=== PATIENT | male | born 1975 | race Caucasian/White ===

== ENCOUNTER 2024-12-30 11:25 | Outpatient (AMB) | payer OTHER, SELFPAY ==
--- NOTE | 2024-12-30 11:33 | A.OFFPC_ITS ---
Vital Signs 12/30/24 11:46 12/30/24 11:57 Height 5 ft 11.06 in Weight 184 lb 2 oz BMI 25.6 BP 148/100 H 148/102 H Blood Pressure Location Rt brachial Rt brachial Position Sitting Sitting Respiration 14 Pulse 110 H Pulse Source Pulse Oximeter Pulse Oximetry (%) 97 Oxygen Delivery Method Room Air Intake Visit Reasons: Ets Care Intake Note: New patient visit. On cephalexi for lymph node swelling. Survey Research Teacher Required: No Allergies bee pollen Allergy (Unknown, Verified 01/02/25 09:51) Unknown morphine Allergy (Unknown, Verified 01/02/25 09:51) hyperactivity naproxen Allergy (Unknown, Verified 01/02/25 09:51) Rash Sulfa (Sulfonamide Antibiotics) Allergy (Unknown, Verified 01/02/25 09:51) Hives tinidazole Allergy (Unknown, Verified 01/02/25 09:51) Hives Tobacco use date assessed: 12/30/24 Dental Screening Dental Screen Date: 12/30/24 Did you have a dental visit in the last 12 months?: Yes Did you have a dental problem in the last 6 months where you did not have access to dental care?: No Was dental information given to patient?: Patient has dentist HPI HPI Comments History of Present Illness Details 49 year old male with a past medical his tory of enteric reactive arthritis, ulcerative colitis s/p total colectomy, arthralgia, cervical & lumbar DDD presenting to reestablish care EC: Follows with colorectal/GI. Stable. Colectomy/J pouch 2012. MSK: -Left carpal tunnel done in August. Got post operative staph infection. Left hand/arm pain following surgery. Then had left axillary lymph nodes swelling went on abx resolved. Then had right axillary lymph nodes back on abx. Right elbow swelling. History of ?gout-left toe swelling-there was a questions of osteomyelitis, cellulitis. EMG done yesterday. Follows up for this in February. -Has had elevated RF. [facility] Insomnia: Stable on zolpidem ROS see HPI PHYSICAL EXAM: GENERAL: Alert and oriented x 3. NAD EYES: EOMI. Anicteric. HENT: Moist mucous membranes. No scleral icterus. No cervical lymphadenopathy. LUNGS: Clear to auscultation bilaterally. CARDIOVASCULAR: Regular rate and rhythm. No murmur. No JVD. ABDOMEN: Soft, non-tender +bs EXTREMITIES: No edema. Non-tender. SKIN: No rashes or lesions. Warm. NEUROLOGIC: No focal neurological deficits. CN II-XII grossly intact PSYCHIATRIC: Cooperative. Appropriate mood and affect [facility] Medical History H/O sigmoidoscopy Surgical History History of hernia surgery History of carpal tunnel surgery Hx of appendectomy H/O colectomy H/O colonoscopy Family History Mother Breast cancer Other FH: mental illness Social History Housing: House Alcohol intake: current Comment: socially Patient Tobacco Use Status: Former Tobacco user Cigarette Packs Per Day: 0.5 Years Smoked: 20 e-Cigarette/Vaping Use: Never Used Second Hand Smoke Exposure: No service: No Current occupational status: employed Current occupation: Sales Current occupational exposures/hazards: No Cognitive needs: No Hearing needs: No Vision needs: No Questionnaire PHQ-9 Over the last 2 weeks, how often have you been bothered by any of the following problems? 1. Little interest or pleasure in doing things: not at all 2. Feeling down, depressed, or hopeless: not at all 3. Trouble falling or staying asleep, or sleeping too much: several days 4. Feeling tired or having little energy: not at all 5. Poor appetite or overeating: not at all 6. Feeling bad about yourself - or that you are a failure or have let yourself or your family down: not at all 7. Trouble concentrating on things, such as reading the newspaper or watching television: not at all 8. Moving or speaking so slowly that other people could have noticed. Or the opposite - being so fidgety or restless that you have been moving around a lot more than usual: not at all 9. Thoughts that you would be better off or of hurting yourself in some way: not at all Total score: 1 Depression Screening Interpretation: Negative Depression Screening Done: Yes 76625 - PHQ-9 Billing: Yes Source: Developed by Drs. Julio Madsen, Peri Pace, Bridger Rueda and colleagues, with an educational quentin from [employer]. Thrive Questionnaire Date Thrive assessed: 12/30/24 I am a: Patient What is your living situation today?: I have a steady place to live Within the past 12 months, did the food you bought not last and you didn't have the money to get more?: Never true Within the past 12 months, did you worry whether your food would run out before you got money to buy more?: Never true Do you have trouble paying for medicines?: No Do you have trouble getting transportation to medical appointments?: No Do you have trouble paying your heating and electricity bill?: No Do you have trouble taking care of your child, family member or friend?: No Do you have trouble with day-to-day activities such as bathing, preparing meals, shopping, managing finances, etc.?: No Are you currently unemployed and looking for a job?: No Are you interested in more education?: No Please select the resources that you would like help with: None Currently or been in a relationship where the following occur: No concerns reported THRIVE Score: 0 AUDIT C Alcohol Use Questionnaire (AUDIT-C) 1. How often do you have a drink containing alcohol?: 2-3 times a week 2. How many drinks containing alcohol do you have on a typical day when you are drinking?: 3 or 4 3. How often do you have six or more drinks on one occasion?: Never Total Score: 4 MEGHAN-7 AMB Questionnaire MEGHAN-7 Date MEGHAN - 7 assessed: 12/30/24 Feeling nervous, anxious, or on edge: 0 = Not at all Not being able to stop or control worryin = Not at all Worrying too much about different things: 0 = Not at all Trouble relaxin = Not at all Being so restless that it is hard to sit still: 0 = Not at all Becoming easily annoyed or irritable: 0 = Not at all Feeling afraid as if something awful might happen: 0 = Not at all Total MEGHAN-7 score (0-4 normal; 5-9 mild; 10-14 moderate; 15-21 severe): 0 Source: Developed by Peri Pena B.W. Sanjeev, Bridger Rueda and colleagues, with an educational quentin from [employer]. MEGHAN-7 Assessment Billing MEGHAN-7 Assessment Tool: MEGHAN-7 Assessment 48780 Physical exam (Primary Care) Vital Signs: Last Vital Signs Pulse 110 H 12/30/24 11:46 Resp 14 12/30/24 11:46 BP 148/102 H 12/30/24 11:57 Pulse Ox 97 12/30/24 11:46 Oxygen Delivery Method Room Air 12/30/24 11:46 BMI result Body Mass Index 25.6 Tobacco/Smoking Status: Tobacco use Status Tobacco use date assessed 12/30/24 12/30/24 11:50 Patient Tobacco Use Status Former Tobacco user 12/30/24 11:50 e-Cigarette/Vaping Use Never Used 12/30/24 11:50 PHQ-9: PHQ-9 Score PHQ-9: Total score 1 01/04/25 10:50 Depression Screening Interpretation: Negative Thrive Assessment: Date of Thrive Assessment Date Thrive assessed 12/30/24 12/30/24 11:55 Currently or been in a relationship where the following occur: No concerns reported Coding Level of Care Code Est Pt Level 5 (18102) Diagnoses Reactive arthritis of multiple sites M02.39 Reactive arthritis location: multiple sites Staph infection B95.8 Iron excess E83.19 Additional Codes MEGHAN-7 Assessment Billing - MEGHAN-7 Assessment Tool: MEGHAN-7 Assessment 09747 ([id number]) PHQ-9 - 62932 - PHQ-9 Billing: Yes ([id number]) Time Spent (min) 50 Assessment & Plan Assessment & Plan (1) Reactive arthritis: Code(s): M02.30 - Lilli's disease, unspecified site Category: Medical Qualifiers: Reactive arthritis location: multiple sites Qualified Code(s): M02.39 - Lilli's disease, multiple sites Plan: Pending rheumatology consult (2) Staph infection: Code(s): B95.8 - Unspecified staphylococcus as the cause of diseases classified elsewhere Category: Medical Plan: If intermittent LN recurs consider infectious disease (3) Iron excess: Code(s): E83.19 - Other disorders of iron metabolism Category: Medical Plan: While on iron. He stopped this. Then donated blood. Will wait 2 months prior to recheck Orders: Orders Rheumatoid Factor 12/31/24 B95.8 - Unspecified staphylococcus as the cause of diseases classified elsewhere, M02.30 - Lilli's disease, unspecified site, M25.40 - Effusion, unspecified joint, M50.30 - Other cervical disc degeneration, unspecified cervical region, R20.0 - Anesthesia of skin Vitamin B12 and Folate 12/31/24 B95.8 - Unspecified staphylococcus as the cause of diseases classified elsewhere, M02.30 - Lilli's disease, unspecified site, M25.40 - Effusion, unspecified joint, M50.30 - Other cervical disc degeneration, unspecified cervical region, R20.0 - Anesthesia of skin Cyclic Citrullinated Peptide 12/31/24 B95.8 - Unspecified staphylococcus as the cause of diseases classified elsewhere, M02.30 - Lilli's disease, unspecified site, M25.40 - Effusion, unspecified joint, M50.30 - Other cervical disc degeneration, unspecified cervical region, R20.0 - Anesthesia of skin Uric Acid 12/31/24 B95.8 - Unspecified staphylococcus as the cause of diseases classified elsewhere, M02.30 - Lilli's disease, unspecified site, M25.40 - Effusion, unspecified joint, M50.30 - Other cervical disc degeneration, unspecified cervical region, R20.0 - Anesthesia of skin Pathologist Review - CBC 12/31/24 B95.8 - Unspecified staphylococcus as the cause of diseases classified elsewhere, M02.30 - Lilli's disease, unspecified site, M25.40 - Effusion, unspecified joint, M50.30 - Other cervical disc degeneration, unspecified cervical region, R20.0 - Anesthesia of skin Complete Blood Count Auto Diff 3 Months E83.19 - Other disorders of iron metabolism Ferritin 3 Months E83.19 - Other disorders of iron metabolism Erythrocyte Sedimentation Rate 12/31/24 B95.8 - Unspecified staphylococcus as the cause of diseases classified elsewhere, M02.30 - Lilli's disease, unspecified site, M25.40 - Effusion, unspecified joint, M50.30 - Other cervical disc degeneration, unspecified cervical region, R20.0 - Anesthesia of skin Complete Blood Count Auto Diff 12/31/24 B95.8 - Unspecified staphylococcus as the cause of diseases classified elsewhere, M02.30 - Lilli's disease, unspecified site, M25.40 - Effusion, unspecified joint, M50.30 - Other cervical disc degeneration, unspecified cervical region, R20.0 - Anesthesia of skin IRON PROFILE 3 Months E83.19 - Other disorders of iron metabolism Referrals Rheumatology Referral E83.19 - Other disorders of iron metabolism Infectious Disease Referral B95.8 - Unspecified staphylococcus as the cause of diseases classified elsewhere, M25.40 - Effusion, unspecified joint, R20.0 - Anesthesia of skin
[2024-12-30 11:46] VITALS: BP 148/100; PULSE 110; RESP 14; O2SAT 97; BMI 25.6
[2024-12-30 11:57] VITALS: BP 148/102
== END 2024-12-30 12:22 | disposition home or self-care (01) ==
PROVIDERS: PCP Internal Medicine; Visit Provider Internal Medicine
DX: M02.39 Reiter's disease, multiple sites (principal); B95.8 Unspecified staphylococcus as the cause of diseases classified elsewhere; E83.19 Other disorders of iron metabolism

== ENCOUNTER → 2024-12-30 11:25 | Outpatient (BNVA) | payer OTHER, SELFPAY | PROVIDERS: PCP Internal Medicine; Visit Provider Internal Medicine | DX: M02.39 Reiter's disease, multiple sites (principal); B95.8 Unspecified staphylococcus as the cause of diseases classified elsewhere; E83.19 Other disorders of iron metabolism | CPT/HCPCS: 96127 ==

== ENCOUNTER 2024-12-31 14:41 | Outpatient (REF) | payer OTHER, SELFPAY ==
[2024-12-31 18:30] LABS: MANUAL DIFF FLAG NO
[2024-12-31 18:55] LABS: Basophils Absolute Auto 0.1 X10*3/uL (0.0-0.2); Basophils Percent Auto 0.9 % (0-2); Eosinophils Absolute Auto 0.1 X10*3/uL (0.0-0.4); Eosinophils Percent Auto 0.8 % (0-4); Hematocrit 45.5 % (42.0-52.0); Hemoglobin 15.7 g/dl (14.0-18.0); Imm Gran Abs Auto 0.05 X10*3/uL (0.00-0.03); Imm Gran Pct Auto 0.5 % (0.0-0.4); Lymphocytes Absolute Auto 1.6 X10*3/uL (1.2-4.9); Lymphocytes Percent Auto 17.4 % (20-40); Mean Corpuscular HGB Conc 34.5 g/dl (31.0-36.0); Mean Corpuscular Hemoglobin 32.2 pg (27.0-33.0); Mean Corpuscular Volume 93.2 fL (80.0-98.0); Mean Platelet Volume 10.5 fL (9.4-12.4); Monocytes Absolute Auto 1.1 X10*3/uL (0.1-1.2); Monocytes Percent Auto 11.8 % (2-11); Neutrophils Absolute Auto 6.3 x10*3/uL (2.0-8.3); Neutrophils Percent Auto 68.6 % (45-73); Platelet Count 196 X10*3/uL (160-400); Red Blood Count 4.88 X10*6/uL (4.60-5.80); Red Cell Distribution Width 13.1 % (11.0-16.0); White Blood Count 9.1 X10*3/uL (4.8-10.8)
[2024-12-31 19:02] LABS: Rheumatoid Factor 48.4 IU/mL (<15.0)
[2024-12-31 19:10] LABS: Uric Acid 9.5 mg/dL (3.4-7.0)
[2024-12-31 19:33] LABS: Folate 9.3 ng/mL (> or = 4.0); Vitamin B12 292 pg/mL (200-900)
[2024-12-31 19:56] LABS: Erythrocyte Sedimentation Rate 6 MM/HR (0-15)
[2025-01-05 14:23] LABS: Cyclic Citrullinated Peptide <16 UNITS
== END 2024-12-31 14:42 | disposition home or self-care (01) ==
LOC: HO.WFDLDS 14:41
PROVIDERS: Visit Provider Internal Medicine
DX: M25.40 Effusion, unspecified joint (principal); B95.8 Unspecified staphylococcus as the cause of diseases classified elsewhere; M02.30 Reiter's disease, unspecified site; M50.30 Other cervical disc degeneration, unspecified cervical region; R20.0 Anesthesia of skin
CPT/HCPCS: 82607; 82746; 84550; 85025; 85652; 86200; 86431

== ENCOUNTER 2025-01-12 14:11 | Outpatient (AMB) | payer OTHER, SELFPAY ==
--- NOTE | 2025-01-12 14:14 | MHC.OFFVIS ---
Vital Signs 01/12/25 14:43 Height 5 ft 10 in Weight 189 lb BMI 27.1 Pulse 80 Pulse Source Pulse Oximeter Temp 98.7 F Temp Source Oral Pulse Oximetry (%) 98 Oxygen Delivery Method Room Air [place] [facility] [place] Allergies bee pollen Allergy (Unknown, Verified 01/12/25 14:43) Unknown morphine Allergy (Unknown, Verified 01/12/25 14:43) hyperactivity naproxen Allergy (Unknown, Verified 01/12/25 14:43) Rash NSAIDS (Non-Steroidal Anti-Inflamma Allergy (Unknown, Verified 01/12/25 14:43) Unknown Sulfa (Sulfonamide Antibiotics) Allergy (Unknown, Verified 01/12/25 14:43) Hives tinidazole Allergy (Unknown, Verified 01/12/25 14:43) Hives HPI [place] [facility] [place]: Details: He reports left hand swollen and staph infection. He also reports right elbow swelling and pain. He has had right carpal tunnel evaluation in past. He denies IVDU. PFSH Medical History H/O sigmoidoscopy Surgical History History of hernia surgery History of carpal tunnel surgery Hx of appendectomy H/O colectomy H/O colonoscopy Family History Mother Breast cancer Other FH: mental illness Social History Housing: House Alcohol intake: current Comment: socially Patient Tobacco Use Status: Former Tobacco user Cigarette Packs Per Day: 0.5 Years Smoked: 20 e-Cigarette/Vaping Use: Never Used Second Hand Smoke Exposure: No service: No Current occupational status: employed Current occupation: Sales Current occupational exposures/hazards: No Cognitive needs: No Hearing needs: No Vision needs: No Review of Systems Const All systems reviewed & are unremarkable except as noted in HPI and below Physical Exam Vital Signs: Last Vital Signs Temp 98.7 F 01/12/25 14:43 Pulse 80 01/12/25 14:43 Pulse Ox 98 01/12/25 14:43 Oxygen Delivery Method Room Air 01/12/25 14:43 BMI result Body Mass Index 27.1 Const General: cooperative HEENT Head: Yes normal to inspection Face and sinus: Yes normal facial exam Mouth: Normal oral and palatal mucosa present Teeth and gingiva: dentition normal Eyes General: appearance normal, both eyes and all related structures Pupils: Equal, round and reactive pupils present Resp Effort & Inspection: normal respiratory effort Cardio Rate: regular rate Rhythm: regular rhythm GI Palpation (GI): Soft to palpation and nontender General: Yes no CVA tenderness Back/Spine/Pelvis Back: no CVA tenderness Skin General skin exam: no rashes or lesions noted Neuro General: moves all extremities Cranial nerves: Yes Equal, round and reactive pupils present Extrem General: Yes normal to inspection Psych Appearance: grossly normal Assessment & Plan Assessment & Plan (1) Frequent infections: Comment: If iron excess hemochromatosis can lead to frequent infections No other signs Code(s): Z86.19 - Personal history of other infectious and parasitic diseases Category: Medical Plan: Antibacteral soap to skin. Antibiotics prn need. Coding Level of Care Code New Pt Level 3 (80385) Diagnoses Frequent infections Z86.19
[2025-01-12 14:43] VITALS: PULSE 80; TEMP 37.1; O2SAT 98; BMI 27.1
== END 2025-01-12 15:06 | disposition home or self-care (01) ==
PROVIDERS: PCP Internal Medicine; Visit Provider Internal Medicine
DX: Z86.19 Personal history of other infectious and parasitic diseases (principal)
CPT/HCPCS: 99203

== ENCOUNTER 2025-03-10 14:04 | Outpatient (REF) | payer OTHER, SELFPAY ==
[2025-03-10 17:38] LABS: MANUAL DIFF FLAG NO
[2025-03-10 17:47] LABS: Basophils Absolute Auto 0.1 X10*3/uL (0.0-0.2); Basophils Percent Auto 0.6 % (0-2); Eosinophils Absolute Auto 0.1 X10*3/uL (0.0-0.4); Eosinophils Percent Auto 0.6 % (0-4); Hematocrit 42.4 % (42.0-52.0); Hemoglobin 15.2 g/dl (14.0-18.0); Imm Gran Abs Auto 0.04 X10*3/uL (0.00-0.03); Imm Gran Pct Auto 0.5 % (0.0-0.4); Lymphocytes Absolute Auto 1.6 X10*3/uL (1.2-4.9); Lymphocytes Percent Auto 20.6 % (20-40); Mean Corpuscular HGB Conc 35.8 g/dl (31.0-36.0); Mean Corpuscular Volume 92.2 fL (80.0-98.0); Mean Platelet Volume 10.5 fL (9.4-12.4); Neutrophils Percent Auto 64.7 % (45-73); Platelet Count 160 X10*3/uL (160-400); Red Cell Distribution Width 13.6 % (11.0-16.0); White Blood Count 7.8 X10*3/uL (4.8-10.8)
[2025-03-10 18:09] LABS: Rheumatoid Factor 46.1 IU/mL (<15.0)
[2025-03-10 18:14] LABS: Iron 147 mcg/dL (45-160); Percent Iron Saturation 51 % (15-50); Total Iron Binding Capacity 287 mcg/dL (228-428); Unsaturated Iron Binding 140 ug/dL; Uric Acid 9.1 mg/dL (3.4-7.0)
[2025-03-10 18:30] LABS: Ferritin 397 ng/mL (20-250)
[2025-03-10 18:31] LABS: Erythrocyte Sedimentation Rate 7 MM/HR (0-15)
[2025-03-11 07:44] LABS: CRP High Sensitivity 2.5 mg/L
== END 2025-03-10 14:05 | disposition home or self-care (01) ==
LOC: HO.WFDLDS 14:04
PROVIDERS: Visit Provider Internal Medicine
DX: M02.39 Reiter's disease, multiple sites (principal); E83.19 Other disorders of iron metabolism; M25.40 Effusion, unspecified joint; Z86.19 Personal history of other infectious and parasitic diseases
CPT/HCPCS: 36415; 82728; 83540; 84550; 85025; 85652; 86141; 86431

== ENCOUNTER 2025-04-07 08:54 | Outpatient (AMB) | payer OTHER, SELFPAY ==
--- NOTE | 2025-01-02 09:47 | A.OFFPC_ITS ---
Intake Visit Reasons: f/up 1/2 Allergies bee pollen Allergy (Unknown, Verified 01/02/25 09:51) Unknown morphine Allergy (Unknown, Verified 01/02/25 09:51) hyperactivity naproxen Allergy (Unknown, Verified 01/02/25 09:51) Rash Sulfa (Sulfonamide Antibiotics) Allergy (Unknown, Verified 01/02/25 09:51) Hives tinidazole Allergy (Unknown, Verified 01/02/25 09:51) Hives Tobacco use date assessed: 12/30/24 Dental Screening Dental Screen Date: 12/30/24 PFSH Medical History (Updated 12/30/24 @ 12:12 by Estefany Munoz MD) H/O sigmoidoscopy Surgical History (Updated 12/30/24 @ 11:44 by Marilou Kay CMA) History of hernia surgery History of carpal tunnel surgery Hx of appendectomy H/O colectomy H/O colonoscopy Family History (Updated 12/30/24 @ 11:54 by Marilou Kay CMA) Mother Breast cancer Other FH: mental illness Social History (Updated 12/30/24 @ 11:44 by Marilou Kay CMA) Housing: House Alcohol intake: current Comment: socially Patient Tobacco Use Status: Former Tobacco user Cigarette Packs Per Day: 0.5 Years Smoked: 20 e-Cigarette/Vaping Use: Never Used Second Hand Smoke Exposure: No service: No Current occupational status: employed Current occupation: Sales Current occupational exposures/hazards: No Cognitive needs: No Hearing needs: No Vision needs: No Questionnaire Thrive Questionnaire Date Thrive assessed: 12/30/24 MEGHAN-7 AMB Questionnaire MEGHAN-7 Date MEGHAN - 7 assessed: 12/30/24 Source: Developed by Drs. Julio Madsen, Peri Pace, Bridger Rueda and colleagues, with an educational quentin from [facility]. Physical exam (Primary Care) Tobacco/Smoking Status: Tobacco use Status Tobacco use date assessed 12/30/24 12/30/24 11:50 Patient Tobacco Use Status Former Tobacco user 12/30/24 11:50 e-Cigarette/Vaping Use Never Used 12/30/24 11:50 Thrive Assessment: Date of Thrive Assessment Date Thrive assessed 12/30/24 12/30/24 11:55 Coding
--- NOTE | 2025-04-07 08:59 | MHC.PC.OV ---
Vital Signs 04/07/25 09:03 Height 5 ft 10 in Weight 185 lb BMI 26.5 BP 142/82 H Blood Pressure Location Rt brachial Position Sitting Pulse 84 Pulse Source Pulse Oximeter Temp 98.4 F Temp Source Temporal Artery Scan Pulse Oximetry (%) 97 Oxygen Delivery Method Room Air Intake Visit Reasons: f/up 11/06 Intake Note: John presents in the office today for a follow up. Allergies Seasonal Allergies Allergy (Mild, Verified 04/07/25 09:02) Congestion morphine Allergy (Unknown, Verified 04/07/25 09:01) hyperactivity naproxen Allergy (Unknown, Verified 04/07/25 09:01) Rash NSAIDS (Non-Steroidal Anti-Inflamma Allergy (Unknown, Verified 04/07/25 09:01) Unknown Sulfa (Sulfonamide Antibiotics) Allergy (Unknown, Verified 04/07/25 09:01) Hives tinidazole Allergy (Unknown, Verified 04/07/25 09:01) Hives Tobacco use date assessed: 04/07/25 Dental Screening Dental Screen Date: 04/07/25 Did you have a dental visit in the last 12 months?: Yes Did you have a dental problem in the last 6 months where you did not have access to dental care?: No Was dental information given to patient?: Patient has dentist HPI HPI Comments History of Present Illness Details 50 year old male with a past medical history of enteric reactive arthritis, ulcerative colitis s/p total colectomy, arthralgia, cervical & lumbar DDD, elevated iron presenting for follow up EC: Follows with colorectal/GI. Stable. Colectomy/J pouch 2012. Recent pouchoscopy. MSK: -Left carpal tunnel done in August. Left pinky numbness. Had non diagnostic emg. Prednisone injection was helpful with numbness. -Neck pain -On prn soma -Had elevated RF-saw arthritis treatment ctr. Unlikely rheumatoid Immunology: Got post operative staph infection after carpal tunnel. Left hand/arm pain following surgery. Then had left axillary lymph nodes swelling went on abx resolved. Then had right axillary lymph nodes back on abx. Right elbow swelling. History of ?gout-left toe swelling-there was a questions of osteomyelitis, cellulitis. -Saw Dr Tidwell recently had extra work done Heme/Onc: Mild elevation in iron, iron sat. Not on any supplementation Insomnia: Stable on zolpidem ROS see HPI PHYSICAL EXAM: GENERAL: Alert and oriented x 3. NAD EYES: EOMI. Anicteric. HENT: Moist mucous membranes. No scleral icterus. No cervical lymphadenopathy. LUNGS: Clear to auscultation bilaterally. CARDIOVASCULAR: Regular rate and rhythm. No murmur. No JVD. ABDOMEN: Soft, non-tender +bs EXTREMITIES: No edema. Non-tender. SKIN: No rashes or lesions. Warm. NEUROLOGIC: No focal neurological deficits. CN II-XII grossly intact PSYCHIATRIC: Cooperative. Appropriate mood and affect [facility] Medical History H/O sigmoidoscopy Surgical History History of hernia surgery History of carpal tunnel surgery Hx of appendectomy H/O colectomy H/O colonoscopy Family History Mother Breast cancer Other FH: mental illness Social History (Updated 04/07/25 @ 09:03 by Francoise Deng MA) Housing: House Alcohol intake: current Comment: socially Patient Tobacco Use Status: Former Tobacco user Cigarette Packs Per Day: 0.5 Years Smoked: 20 e-Cigarette/Vaping Use: Never Used Second Hand Smoke Exposure: No service: No Current occupational status: employed Current occupation: Sales Current occupational exposures/hazards: No Cognitive needs: No Hearing needs: No Vision needs: No Questionnaire Thrive Questionnaire Date Thrive assessed: 12/30/24 I am a: Patient What is your living situation today?: I have a steady place to live Within the past 12 months, did the food you bought not last and you didn't have the money to get more?: Never true Within the past 12 months, did you worry whether your food would run out before you got money to buy more?: Never true Do you have trouble paying for medicines?: No Do you have trouble getting transportation to medical appointments?: No Do you have trouble paying your heating and electricity bill?: No Do you have trouble taking care of your child, family member or friend?: No Do you have trouble with day-to-day activities such as bathing, preparing meals, shopping, managing finances, etc.?: No Are you currently unemployed and looking for a job?: No Are you interested in more education?: No Please select the resources that you would like help with: None Currently or been in a relationship where the following occur: No concerns reported THRIVE Score: 0 MEGHAN-7 AMB Questionnaire MEGHAN-7 Date MEGHAN - 7 assessed: 12/30/24 Source: Developed by Drs. Julio Madsen, Peri Pace, Bridger Rueda and colleagues, with an educational quentin from [employer]. Physical exam (Primary Care) Vital Signs: Last Vital Signs Temp 98.4 F 04/07/25 09:03 Pulse 84 04/07/25 09:03 BP 142/82 H 04/07/25 09:03 Pulse Ox 97 04/07/25 09:03 Oxygen Delivery Method Room Air 04/07/25 09:03 BMI result Body Mass Index 26.5 Tobacco/Smoking Status: Tobacco use Status Tobacco use date assessed 04/07/25 04/07/25 09:06 Patient Tobacco Use Status Former Tobacco user 04/07/25 09:06 e-Cigarette/Vaping Use Never Used 04/07/25 09:06 Thrive Assessment: Date of Thrive Assessment Date Thrive assessed 12/30/24 04/07/25 09:06 Currently or been in a relationship where the following occur: No concerns reported Coding Level of Care Code Est Pt Level 4 (20956) Diagnoses ERA (enteric reactive arthritis) M02.10 Iron excess E83.19 Left arm numbness R20.0 Assessment & Plan Assessment & Plan (1) ERA (enteric reactive arthritis): Code(s): M02.10 - Postdysenteric arthropathy, unspecified site Category: Medical (2) Iron excess: Code(s): E83.19 - Other disorders of iron metabolism Category: Medical (3) Left arm numbness: Code(s): R20.0 - Anesthesia of skin Category: Medical Plan 50 year old male for follow up Met with immunology in the setting of frequent infections. He has not had any interval issues. Continue follow up Dr Tidwell Elevated iron-check for hemochromatosis. Labs q 6 months Orders: Orders IRON PROFILE 04/07/25 E83.19 - Other disorders of iron metabolism DNA Analysis Hemochromatosis 04/07/25 E83.19 - Other disorders of iron metabolism Complete Blood Count Auto Diff 04/07/25 E83.19 - Other disorders of iron metabolism Medications: New carisoprodol 350 mg PO QID 120 tabs 3RF Changed From zolpidem PO BEDTIME To zolpidem 10 mg PO BEDTIME PRN 60 tabs 1RF insomnia 60 days
[2025-04-07 09:03] VITALS: BP 142/82; PULSE 84; TEMP 36.9; O2SAT 97; BMI 26.5
--- OUTSIDE RECORDS SUMMARY | 2025-04-07 09:32 | XMS_ITS | Data Portability ---
Author Organization [place] - [facility], [facility] [place] Address [address] [place] [address] Care Team Providers Care Spinning Bath Person Name Role Phone DASHA MONTELONGO Primary Care Provider Assessment Encounter Date Assessment Date Assessment LastModified by Organization Details LastModified Time 01/09/2025 01/09/2025 Assessment: Left hand numbness after left carpal tunnel release 6 months ago, postoperative EMG nondiagnostic for carpal tunnel syndrome Plan: Therapeutic/diag nostic carpal tunnel injection is performed to the left carpal tunnel today. Follow-up as scheduled with me to assess his response to this injection. [email or web address] Not available 01/09/2025 16:44:39 03/11/2025 03/11/2025 Assessment: Left hand numbness after left carpal tunnel release 6 months ago, postoperative EMG nondiagnostic for carpal tunnel syndrome, favorable response to cortisone injection Plan: Findings reviewed with the patient. We have discussed that his improvement after the injection might be long-term, if symptoms do recur, he will call for follow-up. He will otherwise continue with activities as tolerated in the interim. [email or web address] Not available 03/11/2025 13:05:23 Plan of Treatment Reminders Order Date Submit Date Provider Last Modified By Organization Details Last Modified Time Details Appointments None recorded. Lab None recorded. Referral None recorded. Procedures None recorded. Surgeries None recorded. Imaging None recorded. Medication Orders cephalexin 500 mg capsule 2024 025 [facility] [place], [address] [place], [address], 13:51:21 cephalexin 500 mg capsule 2024 025 [email or web address] [facility] - [place], [address] [place], [address], 13:54:42 Patient TargetsNo targets recorded. Patient InstructionsNo instructions recorded. Reason for Referral None Reported. Results Created Date Observation Date Name Description Value Unit Range Abnormal Flag Note LastModifiedBy Organization Detail LastModifiedTime 01/02/2012/29/2024 elect romyo gram + nerve condu ction study No observ ation record ed. [facility] Scheduling Dept [address] [place], [address], 01/05/2025 10:10:49 Result Notes None recorded. Problems Name Problem SNOMED Code Status Onset Date Resolution Date Notes Provider Name and Address Organization Details Recorded Time No complaints 597062199 Active Status : 'A'; Not Available Critical [facility] hospital 09:20:51 Problem Notes None recorded. Procedures Surgical History Date Name Laterality Status Provider Name and Address Organization Details Recorded Time 01/10/20 25 Carpal Tunnel Kenalog 1cc injection, L/R completed Earline Piña MD [address] [facility], [place], [address], [facility] 01/09/2025 16:45:06 11/24/19 25 Lateral Epicondylitis Celestone 1cc Injection, L/R completed Gene Kennedy PA-C [address] [facility], [place], [address], [facility] 11/24/2024 09:00:32 09/16/20 24 CARPAL TUNNEL RELEASE (SURG) completed KEVIN ELENA [facility] 09/17/2024 11:11:16 06/02/20 24 Sports Elbow Bursa Aspi completed Earline Piña MD [address], [place], [address], [facility] 06/02/2024 11:38:19 Imaging Results None recorded. Procedure Notes None recorded. Medical Equipment None Reported. Allergies Allergen ID Allergen Name Allergen Category Reaction Reaction Severity Criticality Documentation Date Start Date Code Code System Note Provider Name and Address Organization Details Recorded Time 161882 Non-stero idal anti-infl ammatory agent (product) medicatio n Not available Not available Not available 06/02/2024 95316 005 SNOMED FOZIA mendoza [place] - [facility] 4 10:57:17 74615 naproxen medicatio n Not available Not available Not available 01/07/20242022 7258 RxNorm Not Available [facility] 4 14:33:36 94223 morphine sulfate medicatio n Not available Not available Not available 01/07/20242022 19736 RxNorm Not Available [facility] 4 14:33:36 32764 Substance with sulfonami de structure and antibacte rial mechanism of action (substanc e) medicatio n Not available Not available Not available 01/07/20242022 85124 8003 SNOMED Not Available Critical [facility] hospital 4 14:33:36 Medications Name Sig Start Date Stop Date Status Note LastModified by Organization Details LastModified Time carisoprodol 350 mg tablet TAKE 1 TABLET BY MOUTH THREE TIMES DAILY NEEDED FOR mild PAIN active Not Available Not Available No t Available trazodone 50 mg tablet TAKE 1 TABLET BY MOUTH DAILY AT BEDTIME active Not Available Not Available N ot Available azithromycin 250 mg tablet TAKE 2 TABLETS BY MOUTH TODAY THEN TAKE 1 TABLET DAILY FOR THE NEXT 4 DAYS active Not Available Not Available No t Available hydrocodone 5 mg-acetamino phen 325 mg tablet TAKE 1 TABLET BY MOUTH every 6 hours FOR 28 DAYS active Not Available Not Available No t Available prednisone 20 mg tablet TAKE 2 TABLETS BY MOUTH DAILY FOR 5 DAYS WITH food active Not Available Not Available No t Available cephalexin 500 mg capsule TAKE 1 CAPSULE BY MOUTH 4 TIMES DAILY WITH food active Not Available Not Available No t Available zolpidem 10 mg tablet TAKE 1 TABLET BY MOUTH DAILY AT BEDTIME NEEDED FOR insomnia active Not Available Not Available No t Available colchicine 0.6 mg tablet Take 1 tablet by mouth daily; 2 tabs to start followed by 1 tab 1 hour later, then 1 per day therafter active Not Available Not Available No t Available doxycycline hyclate 100 mg tablet TAKE 1 TABLET BY MOUTH TWICE DAILY FOR 7 DAYS. TAKE WITH food TO minimize abdominal discomfort active Not Available Not Available N ot Available oxycodone 5 mg tablet TAKE 1/2 tablet BY MOUTH every 6 hours NEEDED FOR PAIN active Not Available Not Available No t Available oxycodone HCl-oxycodon e-ASA 1 every 4 - 6 hours as needed 2022 active Statu s: 'Curr ent'; Not Available Not Available Not Available Vitals Date Recorded Body height Body mass index (BMI) Body weight Provider Name and Address Organization Details Last Updated DateTime 11/17/2024 177.8 cm 25.3 kg/m2 29881.26 g JAILENE MENDEZ [facility] 11/17/2024 14:05:14 Date Recorded Body height Body mass index (BMI) Body weight Provider Name and Address Organization Details Last Updated DateTime 11/24/2024 177.8 cm 25.3 kg/m2 86737.26 g JAILENE MENDEZ [facility] 11/24/2024 08:32:23 Date Recorded Body height Body mass index (BMI) Body weight Provider Name and Address Organization Details Last Updated DateTime 12/22/2024 177.8 cm 25.3 kg/m2 18933.26 g Bina Ignacio [facility] 12/22/2024 13:03:06 Date Recorded Body height Body mass index (BMI) Body weight Provider Name and Address Organization Details Last Updated DateTime 01/09/2025 177.8 cm 25.3 kg/m2 87048.26 g LEILANI EVANS [facility] 01/09/2025 13:20:06 Date Recorded Body height Body mass index (BMI) Body weight Provider Name and Address Organization Details Last Updated DateTime 03/11/2025 177.8 cm 25.3 kg/m2 99339.26 g EULALIA DUNN [facility] 03/11/2025 12:51:50 Social History None recorded. Functional Status None recorded. Mental Status None recorded. Family History Nothing Reported. Medical History Condition Response Allergies/Hayfever N Coronary Artery Disease N Breathing or lung disorders N Anxiety/Depression N Emphysema N Nerve Disorders N Thyroid Problems N COPD N Pacemaker N Kidney/Bladder Problems N Anemia N Vascular Disease N Heart Trouble N Heart Attack (MN) N Gastrointestinal Disease Y Cholesterol N Diabetes N Autoimmune disease N Inflammatory Joint disease N Bleeding Disorder N Orthotics N Seizures/Epilepsy N Arthritis N Blood Clot N AIDS/HIV N Congestive Heart Failure (CHF) N Acid Reflux (GERD) N Cancer N Stroke N Asthma N Circulation Problems N Peripheral Vascular Disease N Sleep Apnea N Hepatitis N Heart Disease N Rheumatoid Arthritis N Pulmonary Embolism N Arrhythmia N Headaches N Fibromyalgia N Hypertension N Osteoporosis N Past Encounters Encounter ID Performer Location Encounter Start Date Encounter Closed Date Diagnosis/Indication Diagnosis SNOMED-CT Code Diagnosis ICD10 Code Diagnosis Note [id number] MD Neal Gracia [address] [place] [address] [place] [address] 06/02/2024 10:38:29 07/03/2024 09:25:32 Pain of right elbow joint 2527655267 7955605 M25.521 Bursitis o f olecranon of right elbow 8537476951 10327 M70.21 [id number] SUNNY Remy [address] [place] [address] [place] [address] 06/16/2024 14:05:19 07/21/2024 08:47:20 [id number] [facility] [address] [place] [address] [place] [address] 08/11/2024 09:48:26 08/27/2024 15:44:03 Carpal tunnel syndrome of left wrist 5241939126 29639 G56.02 [id number] Milka Brizuela, OTR/L,CHT [address] [address] 09/30/2024 12:43:53 09/30/2024 13:01:42 Carpal tunnel syndrome of left wrist 9275006074 65672 G56.02 Upon welcoming the patient from the waiting room into the clinic, I am able to observe how the involved extremity is used functional ly. The patient demonstrat es light use of the surgical hand for such activities as gathering personal items, and adjusting the chair. The patient shared their personal experience over the last 2 weeks living with a postoperat pino hand and modifying activities around the house. Fluctuatio ns in pain levels and the use of medication is also reviewed. He is just finishing up his course of antibiotic s and states a marked improvemen t in his symptoms since that medication . He has no specific concerns with regards to the surgical site. The surgical wound is inspected and found to be clean and dry. The edges of the incision are approximat ed with intact sutures. Patient has intact neurovascu lar structures with only slight tenderness at the incision. No surroundin g erythema, wound drainage, warmth or signs of infection. The patient states no pain when palpating around the surgical site and the surroundin g structures . The digits on the involved hand are able to demonstrat e a nearly full composite fist. Thumb is able to flex and oppose to the small finger. Digits are able to demonstrat e full extension/ hyperexten joie to open and flatten the palm. The wrist has nearly full flexion /extension /circumduc tion range of motion. The patient is able to demonstrat e both tip, tripod, and lateral pinch. The thenar muscle shows atrophy approximat kevin 10%. Strength of the first dorsal interossei /adductor is 4/5. The distal sensation for light touch is assessed. The patient is able to demonstrat e a positive response to light touch. Postoperative visit 7404 22010 Z48.89 Sutures are removed today without complicati on. Scar massage was demonstrat ed including a variety of movements to disperse the fibrotic tissue which, if untouched, would create a thickened area of scar. This is instructed with a handout given to the patient.. Additional home exercises including tendon gliding and median nerve gliding were included on the handout. A small amount of therapy putty was introduced and demonstrat ed with the correspond ing worksheet was provided as well. Further discussion about the MELT technique using a small ball for pillar pain with informatio n was provided. Per the surgeon , since there are no wound care complicati ons or concerns, no follow up appointmen t needed. The patient has been educated with a significan t Home Exercise Program to be completed over the next 2 weeks. The patient was instructed to contact the office if there should arise any concerns with the surgical site or if there is not sufficient functional recovery. All questions, with regards to return to functional activities , are answered prior to leaving the office today. This office visit was complete at 15 minutes. [id number] SUNNY Hamilton [address] [place] [address] 10/23/2024 09:14:21 11/17/2024 16:10:17 Lateral epicondylitis of left humerus 0747746758 56990 M77.12 [id number] SUNNY Remy [facility] [address] [place] [address] 11/17/2024 14:00:44 12/08/2024 12:42:54 Pain of elbow region 44428302 M25.393 [id number] SUNNY Remy [place] [address] [place] [address] 11/24/2024 08:20:55 12/18/2024 14:29:23 [id number] SUNNY Jenkins [address] [place] [address] 12/22/2024 12:46:52 12/30/2024 14:28:40 Acute cellulitis 9815394041 L03.90 Bursitis o f olecranon of right elbow 3779823134 91374 M70.21 [id number] MD ISIS Gracia [address] [place] [address] 01/09/2025 13:06:16 2025 10:36:41 Acute cellulitis 7339452175 L03.90 Bursitis o f olecranon of right elbow 5042849178 95972 M70.21 Carpal fernando kevin syndrome of left wrist 6507747728 68896 G56.02 [id number] MD ISIS Gracia [address] [place] [address] 03/11/2025 12:40:51 03/13/2025 10:36:23 Acute cellulitis 6027181178 L03.90 Bursitis o f olecranon of right elbow 6363204537 75965 M70.21 Carpal fernando kevin syndrome of left wrist 5355175515 32188 G56.02 Health Concerns Section Related Observation LastModified by Organization Detai ls LastModified Time None Recorded Concern Status LastModified by Organization Details LastModified Time None Recorded Advance Directives Directive None Recorded Payers Encounter Date Sequence Insurance Name Policy Number Policy Sheldon Covered Member ID Sheldon Member ID Guarantor Name 11/17/[address] [facility] [id number] 1 John Stomski [id number] John Stomski 11/24/[address] [facility] ([facility]) [id number] 1 John Stomski [id number] John Stomski 12/22/2024 1 [facility] [id number] 1 John Stomski [id number] John Stomski 01/09/[address] [facility] ([facility] [id number] 1 John Stomski [id number] John Stomski 03/11/2025 1 [facility]) [id number] 1 John Stomski [id number] John Stomski Notes Date Note Type Note Provider Name and Address Organization Details Recorded Time text/html I am seeing the patient today under the supervision of dr Blakely who was available but who did not see the patient. DX: Cellulitis right elbow possible early septic olecranon bursitisLeft lateral epicondylitishistory of right olecranon bursitis, status post aspiration 06/02/2024history of left carpal tunnel release HPI:49-year-old male returns today for examination. He is complaining of left lateral elbow pain for several weeks. He has pain with lifting pulling and pushing. He is here in hopes of receiving a cortisone injection. Unable to take anti-inflammatories because he has ulcerative colitis. She also complained of redness to the posterior aspect of his right elbow. He appears to have a localized cellulitis. Past family, medical, social history and review of systems has been reviewed, updated and is located in the patient? s chart. Examination: Alert and oriented ? ? 3 . No acute distress. Nonantalgic gait. Examination right elbow reveals swelling and redness. Elbow is warm to the touch. Mild swelling of the olecranon bursa. Elbow range of motion is full. No cellulitic streaking.. Left elbow elbow reveals no soft tissue swelling. The patient is tender over the lateral epicondyle. Lateral elbow pain with wrist extension, resisted wrist extension and resisted forearm supination. No Tenderness medially or over the olecranon process Impression/Plan:Findings of the situation discussed. Patient appears to have a cellulitis of his right elbow overlying the olecranon. He was prescribed Keflex 500 mg 3 times daily x 1 week. Will hold off on a corticosteroid injection to his left lateral epicondylitis. Will wait until his infection resolves. He will follow-up in 1 week for recheck. Gene Kennedy PA-C [address] [facility] [address], [place], [address], [facility] 11/17/2024 14:18:34 5 text/html I am seeing the patient today under the supervision of dr Blakely who was available but who did not see the patient. DX: Resolved Cellulitis right elbow / early septic olecranon bursitisLeft lateral epicondylitishistory of right olecranon bursitis, status post aspiration 06/02/2024history of left carpal tunnel release HPI:49-year-old male returns today for examination. He completed his antibiotics. Regards to his right septic olecranon bursitis. On exam, this looks like it resolved. Continues to complain of left lateral elbow pain. He is here for cortisone injection to the left elbow Past family, medical, social history and review of systems has been reviewed, updated and is located in the patient? s chart. Examination: Alert and oriented ? ? 3 . No acute distress. Nonantalgic gait. Examination right elbow reveals No swelling and redness. Elbow is Notwarm to the touch. No swelling of the olecranon bursa. Elbow range of motion is full. No cellulitic streaking.. Left elbow elbow reveals no soft tissue swelling. The patient is tender over the lateral epicondyle. Lateral elbow pain with wrist extension, resisted wrist extension and resisted forearm supination. No Tenderness medially or over the olecranon process Impression/Plan: Findings and situation were discussed with the patient. Treatment options were discussed. The patient would like to proceed with a cortisone injection. Under aseptic technique, 6 mg of Celestone, and 1 cc 0.5% marcaine were injected into the left lateral epicondylar region. The patient tolerated the procedure well. Patient follow-up in 6 weeks for reexamination If no improvement. Gene Kennedy PA-C [address] [facility] [address], [place], [address], [facility] 11/24/2024 09:00:46 5 text/html I am seeing the patient today under the supervision of Dr. Buck who was available but who did not see the patient. HPI: 49-year-old male presents with chief complaint of right elbow tenderness and redness today. Has a history of olecranon bursitis that appeared infected and was treated with antibiotics in the past. That cleared up but unfortunately he is concerned that some redness and tenderness in the area has recently recurred. He does have an olecranon bone spur on the right side. He does not have a bursal effusion today. He does not have any fevers or chills. He is being treated here also for bilateral elbow lateral epicondylitis and is status post bilateral carpal tunnel release but complains of persistent numbness in the left hand despite surgery. He is awaiting an EMG scheduled for 01/16/2025. Past family, medical, social history and review of systems have been reviewed and updated on the medical history sheet saved to the patient's chart. Review of systems is negative except as noted above and/or on the medical history sheet. Examination: The patient is well appearing and in no apparent distress. Alert and oriented x3. Right elbow exam demonstrates very minimal erythema over the olecranon. Palpable and visible olecranon spur. There is no olecranon bursal effusion. There is no overlying skin abrasions, lacerations, or defects. He has full elbow, forearm, wrist, digital range of motion. Neurovascularly intact. Peripheral vascular, lymphatic examination, skin, neurological, coordination, sensation are within normal limits unless otherwise noted above. X-rays ordered, obtained and reviewed at [facility] 3 views of the right elbow demonstrate a large olecranon enthesophyte/osteophyte Impression: Right elbow olecranon bursitis, recurrent with mild erythema Plan: Discussed with the patient and treatment options reviewed. I recommended another course of oral antibiotics. This infection appears mild, at most, at this time. There is no olecranon bursal effusion. There is no expanding erythema. He is prescribed Keflex 500 mg p.o. q.i.d. for 7 days. He notes that he would prefer to call for follow-up rather than scheduling an appointment today, as needed if it is persistent or worsening. We did discuss the role of surgery for olecranon bursectomy and excision of olecranon spur. He will consider this if the problem continues. He would like to follow-up with Dr. Piña to review results of his left upper extremity EMG since he has complaints of persistent numbness following carpal tunnel release surgery. Questions answered. [employer] speech recognition rhinologist software was used to create portions of this document. An attempt at proofreading has been made to minimize errors. Please call for corrections. Skye Arreola PA-C [address], [place], [address], [facility] 12/22/2024 15:17:34 5 text/html 49 yo male known to me having undergone a left carpal tunnel release in August. He had problems with numbness postoperatively and an EMG was performed recently. He is here today to review the results of your recent EMG. Incidentally, ever since the surgery, aside from the numbness, he has had ongoing challenges with various symptoms actions developing including a right elbow olecranon bursitis which was treated with a couple courses of oral antibiotics. He is anticipating referral to a superintendent pier as well as an infectious disease specialist. Earline Piña MD [address], [place], [address], [facility] 01/09/2025 16:45:33 5 text/html 49 yo male known to me having undergone a left carpal tunnel release in August. He had problems with numbness postoperatively and an EMG was performed recently. He is here today to review the results of your recent EMG. Incidentally, ever since the surgery, aside from the numbness, he has had ongoing challenges with various symptoms actions developing including a right elbow olecranon bursitis which was treated with a couple courses of oral antibiotics. He is anticipating referral to a superintendent pier as well as an infectious disease specialist. cortisone injection performed at our most revent visit 01/09/25. He reports the numbness was much improved after the injection. Earline Piña MD [address] [place] [address] [address], [place], [address], [facility] 03/11/2025 13:05:37
== END 2025-04-07 09:39 | disposition home or self-care (01) ==
LOC: HO.HMCFM 08:54
PROVIDERS: PCP Internal Medicine; Visit Provider Internal Medicine
DX: M00-M99 Diseases of the musculoskeletal system and connective tissue (principal); E83.19 Other disorders of iron metabolism; R20.0 Anesthesia of skin

== ENCOUNTER → 2025-04-07 08:54 | Outpatient (BNVA) | payer OTHER, SELFPAY | PROVIDERS: PCP Internal Medicine; Visit Provider Internal Medicine ==